=== PATIENT | female | born 1940 | race Caucasian/White ===

== ENCOUNTER 2021-11-06 14:35 | Outpatient (CLI) | payer MEDICARE, SELFPAY ==
--- NOTE | 2021-11-06 14:48 | ECG_ITS ---
Measurements Intervals [place] Rate: 86 P: 49 KS: 178 QRS: -11 QRSD: 98 T: 39 QT: 362 QTc: 435 Interpretive Statements SINUS RHYTHM POSSIBLE LEFT ATRIAL ENLARGEMENT INCOMPLETE RIGHT BUNDLE BRANCH BLOCK BORDERLINE T WAVE ABNORMALITY- ANTERIOR LEADS BASELINE ARTIFACT- I, II, III, AVL BORDERLINE ECG Electronically Signed On 11-06-2021 16:00:08 CLIENT CARE SPECIALIST by Jose Varghese D.O.
== END 2021-11-06 14:36 | disposition home or self-care (01) ==
LOC: ANHCARD 14:40
PROVIDERS: PCP Family Medicine; Visit Provider Family Medicine
DX: E78.2 Mixed hyperlipidemia (principal); R94.31 Abnormal electrocardiogram [ECG] [EKG]; I45.10 Unspecified right bundle-branch block
CPT/HCPCS: 93005

== ENCOUNTER 2021-11-22 07:41 | Outpatient (CLI) | payer MEDICARE, SELFPAY ==
[2021-11-22 09:28] LABS: Basophils Absolute Auto 0.1 K/mm3 (0.0-0.1); Eosinophils Absolute Auto 0.2 K/mm3 (0-0.3); Eosinophils Percent Auto 2.2 % (0-4.4); Hematocrit 42.7 % (37.0-47.0); Hemoglobin 13.7 g/dL (12.0-15.0); Immature Granulocyte Absolute 0.02 K/mm3 (0.00-0.031); Immature Granulocyte Percent A 0.3 % (0-0.5); Lymphocytes Absolute Auto 1.07 K/mm3 (0.9-3.2); Lymphocytes Percent Auto 15.6 % (18.3-44.2); Mean Corpuscular HGB Conc 32.1 g/dl (32-36); Mean Corpuscular Hemoglobin 29.9 pg (26-34); Mean Corpuscular Volume 93.2 fl (80-100); Mean Platelet Volume 10.3 fl (7.4-10.4); Monocytes Absolute Auto 0.5 K/mm3 (0.1-0.6); Monocytes Percent Auto 7.2 % (2.6-8.5); Neutrophils Absolute Auto 5.1 K/mm3 (1.3-6.7); Neutrophils Percent Auto 73.7 % (45.5-73.1); Platelet Count Result 292 k/mm3 (150-375); Red Blood Count 4.58 M/mm3 (4.2-5.4); Red Cell Distribution Width 12.5 % (11.5-14.5); White Blood Count 6.9 K/mm3 (4.5-10.0)
[2021-11-22 09:34] LABS: Albumin Level 4.1 g/dL (3.5-5.1); Estimated Glomerular Filt Rate > 60; Glucose 102 mg/dL (65-110)
[2021-11-22 09:35] LABS: Urine Cotinine NEGATIVE
[2021-11-22 09:44] LABS: Hemoglobin A1C 5.5 % (<5.7)
== END 2021-11-22 07:42 | disposition home or self-care (01) ==
LOC: ANHSURGERY 07:46
PROVIDERS: PCP Family Medicine; Visit Provider Orthopaedic Surgery
DX: Z01.812 Encounter for preprocedural laboratory examination (principal); M17.12 Unilateral primary osteoarthritis, left knee; Z51.81 Encounter for therapeutic drug level monitoring; Z79.899 Other long term (current) drug therapy
CPT/HCPCS: 80307; 82040; 82565; 82947; 83036; 85025; 87081

== ENCOUNTER 2021-12-11 00:41 | Day surgery (SDC) | payer MEDICARE, SELFPAY ==
--- NOTE | 2021-11-22 07:51 | PC.NURSE ---
Report to the Outpatient Waiting Room, entrance under the green pavilion located off [facility], at time _0830_ on date _12/11/21_. OR Time: __1030_. - You and your visitor will be asked a series of questions to screen for COVID 19 for your protection. - A mask is required within the hospital. - NO visitors are allowed at this time. Patient visitors will be guided where to wait when not with patient. Preoperative COVID Testing Requirements: No COVID Test needed if: (proof is required; if not received patient will have Rapid Test prior to entry) - Patient has received COVID Vaccine at least 14 days prior to procedure date or - Patient has positive COVID test result within last 90 days of surgery date. COVID Test needed if above criteria is not met If not COVID vaccinated a COVID test must be conducted within 72 hours of surgery and patient is asked to isolate self from time of testing until procedure. You will go to the [facility] for your COVID testing. The [facility] is located at the corner of [address] [facility]. You will only be called if COVID results are positive and your surgeon may reschedule your elective surgery date. Patients may have clear liquids (water, carbonated beverages, clear teas, apple juice) until 3 hours prior to surgery with a maximum of 20 ounces. (0730 AM) - No food from midnight until time of surgery - Infants may have breast milk until 4 hours before surgery, infant formula 6 hours prior to surgery. - Children will be allowed to drink immediately following surgery. If applicable, please bring a bottle or sippy cup to assist with drinking. Juice, water, soda, and popsicles are readily available. For infants on formula, please bring formula the day of surgery. Pacifiers are allowed. Take the following medications with a SIP of water the morning of surgery: _LEVOTHYROXINE, EYE DROPS__ Medications to discontinue per DR. COSME - _ASPIRIN, NAPROXEN, IBUPROFEN - ASK DR. COSME @ 11/27/21 APPT____ Medications to discontinue per ANESTHESIA - _CALCIUM, GLUCOSAMINE, FISH OIL, PRESERVISION - 3 DAYS PRIOR TO SURGERY: LAST DOSE TO BE ON 12/05/21_ Please no make-up, nail persian, hairspray, perfume, deodorant, or body powder the day of surgery. No jewelry (including any body piercings) or valuables the day of surgery, leave them at home. Please take a shower or bath the night before, or the morning of, surgery with an antibacterial soap. Wear comfortable, loose fitting clothing. Children are encouraged to wear pajamas. - Jewelry must be removed prior to entering the operating room. Rings and piercings that are not removed may be cut off. - The hospital will not accept responsibility for valuables. - Please leave all valuables, including medications, at home the day of surgery. If you are going home after surgery, a licensed canal driver must drive you home. - NO public transportation without another adult. - We recommend that an adult stay with you for 24 hours following discharge. - We also recommend that you do not drive, make important decision, drink alcoholic beverages, or take any drugs that were not prescribed by your health care provider for at least 24 hours after your discharge time. For Pediatric surgeries, we recommend two adults accompany the child home (only one inside the building at this time). Follow any additional instructions given to you from your surgeon. Telephone instructions given to ____PT and asked if any additional questions and then verbalized understanding. Patient advised to call surgeon office or pre surgery nurse liaison [phone] if any additional questions.
[2021-11-22 08:22] VITALS: BP 144/80; PULSE 86; RESP 18; TEMP 36.6; O2SAT 99; BMI 30.1
[2021-12-11] VITALS (10 sets, daily range): BP systolic 110–157; BP diastolic 46–77; PULSE 52–100; RESP 12–20; TEMP 36.4–38; O2SAT 95–100
--- NOTE | ~2021-12-11 | XR_ITS ---
EXAMINATION: XR knee LT 2V DATE: 12/11/2021 14:07 INDICATION: Total left knee arthroplasty. Postop. TECHNIQUE: 2 views of left knee were obtained. COMPARISON: Left knee radiographs 07/01/2019 FINDINGS: There is a total left knee arthroplasty without patellar resurfacing in near-anatomic align ment. No fracture. There is gas in the knee joint and soft tissues, consistent with recent surgery. IMPRESSION: 1. Total left knee arthroplasty in near-anatomic alignment. Reviewed, dictated and finalized at location A. NICAL SERVICES MANAGER
[2021-12-11] MEDS: ACETAMINOPHEN 500 MG TABLET 1000 MG PO (09:30)
[2021-12-11] MEDS: LACTATED RINGERS 1,000 ML 30 ML IV CONT ×2 (09:30→13:57)
[2021-12-11] MEDS: TRANEXAMIC ACID 1,000MG/ISO100 1,000 MG/100 ML BAG 200 MG IVPB (10:20)
--- NOTE | 2021-12-11 10:20 | WPDANESEPPF ---
Anes - Initial Pre Proc Eval Procedure: Operation Date: 12/11/21 11:00 Proposed Procedures p Left Total Knee Arthroplasty - Ramírez Wisdom MD Date/Time: 12/11/21 10:20 Surgeon: Ramírez Wisdom MD Pre Op Diagnosis: OA left knee Patient Data Age: 81 Gender: F Height: 1.63 m Weight: 76.6 kg Last Vital Signs Temp 36.5 C 12/11/21 09:36 Pulse 98 12/11/21 09:36 Resp 16 12/11/21 09:36 BP 132/75 12/11/21 09:36 Pulse Ox 99 12/11/21 09:36 Allergies Allergy/AdvReac Type Severity Reaction Status Date / Time povidone-iodine Allergy Unknown RASH Verified 12/11/21 09:10 Home Medications Medication Instructions Recorded Confirmed Type aspirin 81 mg tablet,delayed 81 mg PO HS 11/05/19 12/11/21 History release glucosamine sulfate 1,000 mg 1,000 mg PO QAM cap 11/05/19 12/11/21 History capsule ibuprofen 200 mg tablet 200 mg PO HS PRN tablet 11/05/19 12/11/21 History latanoprost 0.005 % eye drops 1 drop EACH EYE HS 11/05/19 12/11/21 History omega-3 fatty acids 1,000 mg 1,000 mg PO QAM 11/05/19 12/11/21 History capsule vit C 250 mg-vit E 90 mg-zinc 40 1 tablet PO BID 11/05/19 12/11/21 History mg-copper 1 [id number] capsule calcium carbonate 600 mg calcium 600 mg PO HS 09/05/20 12/11/21 History (1,500 mg) tablet naproxen sodium 220 mg tablet 220 mg PO QAM PRN tablet 08/28/21 12/11/21 History levothyroxine 50 mcg PO QAM 11/22/21 12/11/21 History simvastatin 10 mg PO HS 11/22/21 12/11/21 History rivaroxaban 10 mg tablet 10 mg PO DAILY #14 tablet 11/27/21 Rx Patient hx anesthesia problems: none Family hx anesthesia problems: none Results Review: All pre-operative results and documents have been reviewed as part of the pre-operative evaluation. 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 Encounter for general adult medical examination without abnormal findings Encounter for immunization (08/12/18) Glaucoma Hypercholesterolemia Hyperlipidemia LDL goal <100 Hypothyroidism Hypothyroidism determined by thyroid function test Osteopenia Screening for malignant neoplasm of colon Strain of muscle and tendon of back wall of thorax, initial encounter Surgical History Surgical History History of knee replacement right knee 09/09/2016 Simi History of tonsillectomy 1960 Hx of cataract extraction Family History Family History Mother Diabetes mellitus Heart disease Uterine cancer Father Heart disease Hypertension Grandparent Uterine cancer Sibling Ovarian cancer Sibling Diabetes mellitus Sibling Diabetes mellitus Sibling Diabetes mellitus Social History Social History Smoking status: Never smoker Second hand tobacco smoke exposure: No Additional smoking assessment comments: PT DENIES ALL FORMS OF TOBACCO USE Alcohol intake: current Alcohol use details: Occasional Substance use: never Substance use type: does not use Living arrangements: alone Gender identity (if verbalized by the patient): Female Spiritual care concerns: Yes (Scientology) Agree to blood products: Yes Anes - Eval Final PreProcedure Day of Procedure 12/11/21 10:20 Patient weight: overweight Heart: regular rate and rhythm Lungs: clear to auscultation Airway: Mallampati scale class 1 Neurological: alert and oriented Last oral intake: >/= 8 hours ASA classification: II Emergent: no Anesthetic plan: proceed Anesthesia type and monitoring: general LMA and standard monitoring Results Review: All pre-operative results and documents have been reviewed as part of the pre-operative evaluation. Informed Consent: The
--- NOTE | 2021-12-11 10:25 | WPDHPUPDATE1 ---
History and Physical Update Update Date/Time: 12/11/21 10:25 History and Physical has been reviewed, including an updated exam of the patient. There are NO changes in the patient's condition. Risks, benefits, and alternatives have been discussed and questions answered. Patient agrees to proceed with procedure.
--- NOTE | 2021-12-11 11:18 | WPDANESPNB ---
Anes - Peripheral Nerve Block Date/Time: 12/11/21 11:18 I have discussed with the patient/family/POA the placement of a peripheral nerve block for post-operative pain management, including associated risks, benefits, complications, and side effects. Alternative methods of post-operative analgesia were detailed. Questions were solicited and answers provided to the satisfaction of the patient/family/POA. Time-Out: A pre-procedural Time-Out was completed immediately before starting the procedure and confirmed: Patient Identification, Site, Procedure, Patient Position and the Availability of Requisite Equipment. Clinical Indications: Acute post-operative pain management requested by the operative surgeon. Nerve Block Insertion Note Anes-nerve block: adductor canal left Patient position: supine Skin prep: chlorhexidine Needle: 22 gauge, stimulating, insulated echogenic needle. Needle length: 80 mm Technique: ultrasound Injectate: bupivacaine 0.5% with epi 5 mcg/ml (30) and dexamethasone (mg) (8) Observations: tolerated well Complications: none Procedure start time:: 1105 Procedure end time:: 1110
[2021-12-11] MEDS: ceFAZolin 2 GM/D5W 50 ML 2 GM/50 ML BAG IVPB (11:35)
[2021-12-11] MEDS: ceFAZolin SODIUM 1 GM VIAL IV PUSH (13:21)
--- NOTE | 2021-12-11 13:51 | P.OP_ITS ---
Procedure Note - Detailed Date of Procedure 12/11/21 Pre-op Diagnosis OA left knee Post-op Diagnosis same Procedure Performed Left total knee replacement Surgeon Ramírez Wisdom MD Travel Service Consultant Cassadnra Juan Anesthesia general and regional Description of Procedure The patient was identified and proper site identified. In the preop holding area the anesthesia team performed a left sub sartorial block after which the patient was taken to the operating room and transferred to the OR table po sitioning supine taking care to pad the torso and extremities. After general anesthetic induction and intubation, a nonsterile tourniquet was placed high on the left thigh. The left lower extremity was prepped and draped in the usual sterile fashion. The extremity was exsanguinated and with the knee flexed tourniquet was inflated to 300 mmHg remaining up for approximately 56 minutes. An anterior midline incision was made and a modified medial parapatellar approach was used. Infra and suprapatellar fat pads were excised. Patellar thickness was assessed. It status, it was 10 millimeters and is thickest was 14 so instead of resurfacing, the marginal spurs were removed. Using the intramedullary guide the distal femur was cut in the proper orientation for the size 62.5 femoral component. Using the extramedullary guide the tibia was cut perpendicular to the long axis protecting collateral ligaments and popliteal structures. It was sized to a 71. Flexion and extension gaps were balanced. Trial reduction was undertaken and the weight-bearing line was noted to passed through the center of the joint. Proximal tibia was drilled and punched in the proper orientation for the real component. Trial components were removed. The bone surfaces were washed with pulsatile lavage and dried. The real components were cemented simultaneously. The knee was held in extension until the cement had cured. Excess cement was removed from the joint. After trialing it was determined that the 10 mm insert gave full range of motion from 0-120 degrees of flexion and the patella tracked in the femoral groove with no lift-off. After final lavage the joint the real 10 insert was placed and secured with a locking bar. Periarticular tissues were infiltrated with 60 cc of the arthropl asty solution. 1 g of tranexamic acid was left in the wound. The extensor mechanism was repaired with #2 Vicryl suture and 0 looped PDS suture. Subcu was reapproximated with 3-0 Monocryl and 2-0 Stratafix with tissue adhesive for the skin. A sterile dressing was applied. She tolerated the procedure well, was awakened and extubated, transferred to the bed and was taken to recovery area in stable condition. There were no known intraoperative complications. Perioperative antibiotics were administered. Estimated Blood Loss 150 Tourniquet Time 56 Drains No Packing No Pathology none sent Complications No immediate complications Condition stable Disposition PACU
[2021-12-11] MEDS: fentaNYL CITRATE INJ (*CRX) 100 MCG/2 ML VIAL 25 MCG IV PUSH ×8 (14:17→15:00)
--- NOTE | 2021-12-11 15:35 | ADMGEN ---
This patient, Trina Dao, was admitted to [facility] Surgery-11. Patient oriented to hospital policies and general routines including ID bracelet, bed and alarms, visiting hours, pain management, procedures, bathroom and other care routines, personal items, smoking policy, room service/diet, and visiting hours. Information on how to activate the Rapid Response Team has been discussed. Patient/Family are encouraged to report perceived risks to care and to ask questions if they do not understand what they are told or what they should do.
[2021-12-11] MEDS: SENNA/DOCUSATE SODIUM TABLET 2 TAB PO (16:51)
[2021-12-11] MEDS: HYDROcodone/acetaminophen (*CRX) 5-325 MG TABLET 1 TAB PO (17:15)
[2021-12-11] MEDS: CELECOXIB 200 MG CAPSULE PO (17:16)
[2021-12-11] MEDS: SIMVASTATIN 10 MG TABLET PO (20:45)
[2021-12-11] MEDS: FAMOTIDINE 20 MG TABLET PO (20:45)
[2021-12-11] MEDS: LATANOPROST 0.005% OP SOLN 2.5 ML BTL 1 DROP EACH EYE (20:46)
[2021-12-11] MEDS: HYDROcodone/acetaminophen (*CRX) 5-325 MG TABLET 2 TAB PO (21:00)
[2021-12-11] MEDS: HYDROmorphone HCL INJ (*CRX) 1 MG/ML SYR 0.5 MG IV PUSH (23:59)
[2021-12-12 00:58] VITALS: BP 119/57; PULSE 99; RESP 18; TEMP 37.1; O2SAT 98
[2021-12-12] MEDS: HYDROcodone/acetaminophen (*CRX) 5-325 MG TABLET 1 TAB PO ×3 (02:50→11:13)
[2021-12-12 04:58] VITALS: BP 116/78; PULSE 54; RESP 16; TEMP 36.9; O2SAT 100
[2021-12-12] MEDS: LEVOTHYROXINE SODIUM 50 MCG TABLET PO (06:20)
[2021-12-12] MEDS: polyethylene glycoL 3350 17 GM POWD.PACK PO (08:34)
[2021-12-12] MEDS: FAMOTIDINE 20 MG TABLET PO (08:34)
[2021-12-12] MEDS: SENNA/DOCUSATE SODIUM TABLET 2 TAB PO (08:34)
--- NOTE | 2021-12-12 08:50 | PM.DS ---
DS: Admitting Diagnosis Discharge Date December 12, 2021 Admitting Diagnosis Left knee osteoarthritis DS: Discharge Diagnosis Discharge Diagnosis (1) History of total knee arthroplasty: Qualifiers: Laterality: left Qualified Code(s): Z96.652 - Presence of left artificial knee joint Code(s): Z96.659 - Presence of unspecified artificial knee joint Status: Acute Assessment and Plan: 81-year-old female postop day 1 after left total knee replacement by Dr. Wisdom. Exam today showed a clean and dry dressing. She does have swelling at the surgical site but this is to be expected. During exam this morning she was receiving therapy and did feel some lightheadedness. I suspect this will get better with time and once she starts to push fluids. She will be seen by therapy again prior to discharge. Follow up in our office in 2 weeks for wound check. Questions were addressed with patient and she was told to call our office with any further concerns. DS: Summary Hospital Course Reason for hospitalization: Observation after outpatient procedure Hospital Course: 81-year-old female postop day 1 after left total knee replacement. She does have swelling at the surgical site but this is to be expected after recent procedure. Plan on receiving therapy this morning and discharge afterwards. Status at Discharge Functional status at discharge: uses cane/walker Time Spent with Patient Time attestation: Total time spent providing and/or coordinating discharge services: Time spent: Less than 30 minutes Exam Const: General: comfortable and no acute distress Eyes: General: appearance normal, both eyes and all related structures GI: Inspection: non-distended GI Palp: No Tenderness to palpation present (GI) Neuro: General: patient oriented x3, moves all extremities and Normal light touch and pain sensation Speech: normal speech Sensory Exam: normal sensation Extrem: Other: Exam left knee shows a clean and dry surgical dressing. Swelling noted around the knee and lower leg. She denies numbness or tingling in the foot. Calves negative. Neurovascular status unremarkable. Psych: Mental Status: mental status grossly normal DS: Data Data Completed and Pending Labs on day of discharge: Labs from last 24 hours 12/11/21 09:14 Blood Type A Negative Antibody Screen Negative Discharge Plan Discharge Patient Disposition: Home, Self-Care Discharge Instructions: 3 times daily for 20 minutes each time, reclining in bed with ice packs over the incision and a pillow underneath the calf of the affected leg, not under the knee. Your wound is glued so it is okay to get into the shower and get the wound wet in two days. Be sure to read through all the information that came from a my office and the hospital. Most of the answers you will need can be found that material. Call the office with any questions that you cannot find answers to, or concerns you may have. After the Xarelto is completed, start taking one coated 325 mg aspirin daily and do this for four more weeks. Please call [facility] at as soon as possible to verify your follow-up appointment to be seen in 2 weeks. Also, call the office with any orthopedic/surgical related questions prior to follow-up. Be sure to get up and move around several times daily but do not overdo it. He has been given a prescription for hydrocodone 5/325. This has Tylenol in it so do not take the extra Tylenol while taking this medication. Once this medication is finished, you may start on a Tylenol schedule of 3 times per day. Take the arthritis formula Tylenol 650 mg tablet on an 8 hour schedule. A good 8 hour schedule is: 6:00 a.m., 2:00 p.m., 10:00 p.m. you may take the prescribed pain medication along with the Tylenol; it is not to be taken instead of the Tylenol. You have also been given a prescription for Celebrex. This is an anti-inflammatory that you c
[2021-12-12 08:58] VITALS: BP 118/52; PULSE 88; RESP 20; TEMP 36.2; O2SAT 99
[2021-12-12] MEDS: CELECOXIB 200 MG CAPSULE PO (10:14)
[2021-12-12] MEDS: OPTI-GEN TAB 1 TABLET PO (10:14)
[2021-12-12] MEDS: RIVAROXABAN 10 MG TABLET PO (11:12)
--- NOTE | 2021-12-12 11:39 | PM.IMCN ---
Assessment and Plan Assessment and plan (1) History of total knee arthroplasty: Qualifiers: Laterality: left Qualified Code(s): Z96.652 - Presence of left artificial knee joint Code(s): Z96.659 - Presence of unspecified artificial knee joint Status: Acute Assessment and Plan: Sp left knee arthoplasty doing well pod day 1 Pt can be discharged today by orthopedics medically stable from my point of view. Pt to be discharged with oral xarelto and norco for pain control (2) Hypothyroidism (acquired): Code(s): E03.9 - Hypothyroidism, unspecified Status: Acute Assessment and Plan: Pt to continue on oral levothyroxine as before (3) Osteoarthritis of multiple joints: Qualifiers: Osteoarthritis type: primary Qualified Code(s): M89.49 - Other hypertrophic osteoarthropathy, multiple sites Code(s): M15.9 - Polyosteoarthritis, unspecified Status: Acute Assessment and Plan: Sp left knee previously had R knee Continue follow up with orthopedics (4) Mixed hyperlipidemia: Code(s): E78.2 - Mixed hyperlipidemia Status: Acute Assessment and Plan: Continue statin as before (5) Hypercholesterolemia: Code(s): E78.00 - Pure hypercholesterolemia, unspecified Status: Acute Assessment and Plan: Continue statin as before HPI Data of Consult Consult date: 12/12/21 Requesting Physician: Ramírez Wisdom MD Primary Care Provider: Jannie Powell MD Consult Narrative Narrative: Trina Dao is a 81 year old female admitted for left knee replacement. Pt has history of Hypercholesterolemia and hypothyroidism, macular degeneration and OA of her knees. Pt has had her R knee replaced already. Pt had L knee replaced yesterday feels well apart from left knee swelling. Pt was told by orthopedics she has soft tissue swelling and should keep ice on it. Otherwise pt has no issues, her PCP is DR Powell. 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 Encounter for general adult medical examination without abnormal findings Encounter for immunization (08/12/18) Glaucoma Hypercholesterolemia Hyperlipidemia LDL goal <100 Hypothyroidism Hypothyroidism determined by thyroid function test Osteopenia Screening for malignant neoplasm of colon Strain of muscle and tendon of back wall of thorax, initial encounter Surgical History Surgical History History of knee replacement right knee 09/09/2016 Simi History of tonsillectomy 1960 Hx of cataract extraction Family History Family History Mother Diabetes mellitus Heart disease Uterine cancer Father Heart disease Hypertension Grandparent Uterine cancer Sibling Ovarian cancer Sibling Diabetes mellitus Sibling Diabetes mellitus Sibling Diabetes mellitus Social History Social History Smoking status: Never smoker Second hand tobacco smoke exposure: No Additional smoking assessment comments: PT DENIES ALL FORMS OF TOBACCO USE Alcohol intake: current Alcohol use details: Occasional Substance use: never Substance use type: does not use Living arrangements: alone Gender identity (if verbalized by the patient): Female Spiritual care concerns: No Agree to blood products: Yes Meds Home Medications and Allergies Home Medications Medication Instructions Recorded Confirmed Type aspirin 81 mg tablet,delayed 81 mg PO HS 11/05/19 12/11/21 History release glucosamine mott
[2021-12-12 12:37] VITALS: BP 121/47; PULSE 100; RESP 18; TEMP 36.8; O2SAT 99
== END 2021-12-12 12:58 | disposition home or self-care (01) ==
LOC: ANHSURGERY 13:40 → ANHSUROVER 15:17
PROVIDERS: PCP Family Medicine; Visit Provider Orthopaedic Surgery
PROC: (CPT 27447; principal; 2021-12-11 11:00)
DX: M17.12 Unilateral primary osteoarthritis, left knee (principal); G89.18 Other acute postprocedural pain; E78.5 Hyperlipidemia, unspecified; E03.9 Hypothyroidism, unspecified; M89.49 Other hypertrophic osteoarthropathy, multiple sites; E78.2 Mixed hyperlipidemia; E78.00 Pure hypercholesterolemia, unspecified; H35.3110 Nonexudative age-related macular degeneration, right eye, stage unspecified; H35.3210 Exudative age-related macular degeneration, right eye, stage unspecified; M85.80 Other specified disorders of bone density and structure, unspecified site; H40.9 Unspecified glaucoma; Z79.82 Long term (current) use of aspirin; Z79.01 Long term (current) use of anticoagulants
CPT/HCPCS: 27447; 64447; 36415; 73560; 86850; 86900; 86901; 97110; 97116; 97161; 97165; A9270; C1713; C1776; J0171; J0690; J1100; J1170; J2250; J2270; J2405; J2704; J2795; J3010; J7030; J7120

== ENCOUNTER 2022-01-30 11:00 | Outpatient (RCR) | payer MEDICARE, SELFPAY ==
--- NOTE | 2022-01-01 09:24 | PTOPEVAL ---
PHYSICAL THERAPY EVALUATION AND PLAN OF CAR E Thank you for referring Trina Dao to [facility].? The patient is scheduled to be seen for therapy? 2x/week for 4 weeks. Please review, sign, date and return this plan of care JOYCE. I agree with and certify that the following plan of care is medically necessary. Referring Physician Date Attending Provider: Ramírez Wisdom MD Evaluation Diagnosis left TKA Onset 12/11/21 Subjective Information Trina is here today 3 Query Text:As Reported By Patient/ weeks s/p left TKA. She Family participated in HH PT for the first 2 weeks of therapy. She continues to walk with a WW. She has been spongebathing because she has been nervous to step over the tub. Prior Level of Function Home Setting Home Type House,Multiple Levels Environmental Barriers Railing, Bilateral,Stairs, Greater than 4 Living Situation Alone Support Available Local Family Support Comments Additional Prior Level of Function laundry is in the basement. Comments Self Report Pain Assessment Left Knee(s) Reported Pain Level 1 Pain Description Aching Pain Frequency Acute,Intermittent Lowest Pain Intensity 1 Greatest Pain Intensity 6 Pain Aggravating Factors Exercise/Activity Other Pain Aggravating Factors edema Pain Score Pain Score 1: Self Report Interventions Used Interventions Used By Clinicians Exercise,Ice,Manual Therapy Techniques Pain Relief Interventions Used By Elevation,Ice Patient Lower Extremity Range of Motion Knee Range of Motion Left Knee Flexion Range of Motion - Active 104 Knee Extension Range of Motion - Active -2 Query Text: Lower Extremity Muscle Strength Testing Hip Strength Left Hip Flexion Strength 4 Good Hip Extension Strength 3+ Fair + Hip Abduction Strength 3 Fair Knee Strength Left Knee Flexion Strength 4- Good - Knee Extension Strength 4- Good - Extremity Circumference Assessment Circumference Assessment Location Left Body Part Knee Site Descriptor (Fitzpatrick) suprapatellar Circumference (cm) 46 Gait Assessment Gait Assessment Ambulation Assistive Devices Walker, Wheeled Weight Bearing Status - Left As Tolerated Weight Bearing Status - Right Full Maintains Weight Bearing Status Yes Ambulation Ability Independent Additional Ambulation Comments th
--- NOTE | 2022-01-30 11:15 | PTOPEVAL ---
PHYSICAL THERAPY DISCHARGE NOTE Thank you for referring Trina Dao to [facility] [place] Please review, sign, date and return this plan of care JOYCE. I agree with and certify that the following plan of care is medically necessary. Referring Physician Date Attending Provider: Ramírez Wisdom MD Discharge Diagnosis left TKA Onset 12/11/21 Subjective Information States that she has been doing Query Text:As Reported By Patient/ well. She has been going to Family the basement to do laundry and going for walks on nice days. She has been able to get into and out of the bathtub shower with a shower chair. Reports no significant pain in left knee. Pain Assessment Timing of Pain Assessment Timing of Pain Assessment Assessment Self Report Self Report Pain Level 0 Pain Score Pain Score 0: Self Report Lower Extremity Range of Motion Knee Range of Motion Left Knee Flexion Range of Motion - Active 120 Knee Extension Range of Motion - Active 0 Query Text: Lower Extremity Muscle Strength Testing Hip Strength Left Hip Flexion Strength 5 Normal Hip Extension Strength 4- Good - Hip Abduction Strength 4- Good - Knee Strength Left Knee Flexion Strength 4+ Good + Knee Extension Strength 4+ Good + Gait Assessment Gait Assessment Ambulation Assistive Devices None Weight Bearing Status - Left Full Weight Bearing Status - Right Full Maintains Weight Bearing Status Yes Ambulation Ability Independent Stair Climbing Assessment Stair Climbing Assessment Stair Climbing Assistive Devices Railings Weight Bearing Status - Left Full Weight Bearing Status - Right Full Maintains Weight Bearing Status Yes Technique Alternating Steps Stair Climbing Direction Both Up and Down Stair Climbing Ability Independent Ability to Step Over a Curb Independent Stair Climbing Comments Cues to engage and activate glutes when pressing up on stairs General Exercise General Exercises Side Left Exercise Location knee Exercise Type Active Exercise Description reviewed HEP per chart copy - Query Text:Record Sets, Reps, took out heel walking and toe Resistance, and Position walking as it increases pain in the left ankle PT Clinical Summary Celina is a a 81 yo female presenting to outpatient
== END 2022-01-31 09:14 | disposition home or self-care (01) ==
LOC: ANHPT 11:00
PROVIDERS: PCP Family Medicine; Visit Provider Orthopaedic Surgery
DX: Z47.1 Aftercare following joint replacement surgery (principal); Z96.652 Presence of left artificial knee joint
CPT/HCPCS: 97016; 97110; 97112; 97140; 97162; 97530

== ENCOUNTER 2023-07-09 14:43 | Emergency (ER) | payer MEDICARE, SELFPAY ==
--- NOTE | ~2023-07-09 | CT_ITS ---
EXAMINATION: CT brain wo con DATE: 07/09/2023 15:21 INDICATION: New headache TECHNIQUE: Computed tomography (CT) of the head was performed without intravenous contrast. The mA wa s adjusted according to patient size. Iterative reconstruction technique was employed. Exam dose: 60 5.33 mGy-cm total exam DLP. COMPARISON: None FINDINGS: Bilateral carotid siphon internal carotid artery calcifications. There is nonspecific dimin ished attenuation of the cerebral white matter, likely due to chronic small vessel ischemic changes. Small bilateral chronic basal ganglia lacunar infarcts. No intracranial mass lesion or hemorrhage or recent cerebrovascular accident, midline shift or mass e ffect is detected. No subdural or epidural hematoma. There are several opacified ethmoid air cells but the paranasal sinuses are otherwise well-developed and aerated. The mastoid air cells are normally developed and aerated. No fracture or bone destruction of the cranial vault. IMPRESSION: Cerebral atherosclerosis and chronic small vessel ischemic changes of the cerebral white matter, small bilateral chronic lacunar infarcts of the basal ganglia No acute intracranial finding Reviewed, dictated and finalized at [facility]. Reviewed, dictated and finalized at [facility].
[2023-07-09 14:47] VITALS: BP 150/78; PULSE 93; RESP 16; TEMP 36.2; O2SAT 99
[2023-07-09 15:08] VITALS: BP 148/73; PULSE 85; RESP 17; O2SAT 98
--- NOTE | 2023-07-09 16:26 | ED.HA ---
HPI - Headache General Chief Complaint: Headache Stated Complaint: right posterior headache/neck pain Time Seen by Provider: 07/09/23 14:56 History of Present Illness HPI Narrative: Patient is an 83-year-old female who presents ER with headache. Right-sided and posterior over the right paraspinal musculature moving into the base of the skull. No change in vision or hearing. Improves when she takes naproxen. Initially thought she had slept on her side wrong. Also moves to her shoulder. No chest pain or chest pressure. No exertional component. No recent trauma. Denies sinus congestion or sore throat or productive cough. No fevers or chills or sweats. No confusion. Related Data Home Medications Medication Instructions Recorded Confirmed glucosamine sulfate 1,000 mg 1,000 mg PO QAM 11/05/19 03/04/23 capsule latanoprost 0.005 % eye drops 1 drop ophthalmic (eye) HS 11/05/19 03/04/23 omega-3 fatty acids 1,000 mg 1,000 mg PO QAM 11/05/19 03/04/23 capsule (Fish Oil Concentrate) vit C 250 mg-vit E 90 mg-zinc 40 1 tablet PO BID 11/05/19 03/04/23 mg-copper 1 [id number] capsule (PreserVision AREDS-2) calcium carbonate 600 mg calcium 600 mg PO HS 09/05/20 03/04/23 (1,500 mg) tablet naproxen sodium 220 mg tablet 220 mg PO QAM PRN Pain 08/28/21 03/04/23 (Aleve) aspirin 325 mg tablet,delayed 325 mg PO DAILY 09/02/22 03/04/23 release sennosides 8.6 mg tablet (senna) 8.6 mg PO QHS 09/02/22 03/04/23 Allergies Allergy/AdvReac Type Severity Reaction Status Date / Time povidone-iodine Allergy Unknown RASH Verified 07/09/23 15:13 Review of Systems Review of Systems: All systems reviewed & are unremarkable except as noted in HPI and below Constitutional: Constitutional: Denies chills, Denies fatigue and Denies fever(s) Eyes: Eyes: Denies change in vision and Denies photophobia ENT: Denies dizziness, Denies nasal congestion and Denies sore throat Gastrointestinal: Gastrointestinal: Denies abdominal pain, Denies nausea and Denies vomiting Neurologic: Denies syncope, Reports headache(s), Denies focal weakness and Denies numbness PMFSH Past Medical History Medical History Age-related macular degeneration, wet, left eye Arthritis Arthritis of knee, 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 Encounter for general adult medical examination without abnormal findings Encounter for immunization (08/12/18) Glaucoma Hypercholesterolemia Hyperlipidemia LDL goal <100 Hypothyroidism Hypothyroidism determined by thyroid function test Osteopenia Screening for malignant neoplasm of colon Strain of muscle and tendon of back wall of thorax, initial encounter Surgical History Surgical History History of knee replacement right knee 09/09/2016 Simi History of left knee replacement 12/11/2021 History of tonsillectomy 1960 Hx of cataract extraction Family History Family History Mother Diabetes mellitus Heart disease Uterine cancer Father Heart disease Hypertension Grandparent Uterine cancer Sibling Ovarian cancer Sibling Diabetes mellitus Sibling Diabetes mellitus Sibling Diabetes mellitus Social History Social History (Updated 03/04/23 @ 09:50 by Cassandra Murillo CMA) Smoking status: Never smoker Second hand tobacco smoke exposure: No Additional smoking assessment comments: PT DENIES ALL FORMS OF TOBACCO USE Alcohol intake: current Alcohol use details: Occasional Substance use: never Substance use type: does not use Lack of Transportation: No Lack of Food: Never True Current Housing: I Have Housing Concerned About Future Housing: No Difficulty Paying Gas/Electric Bills: No Difficulty Paying for Meds: No Currently Unemployed: No Education: Trade/Vocational Certificat
== END 2023-07-09 16:39 | disposition home or self-care (01) ==
PROVIDERS: Emergency Provider Emergency Medicine; PCP Family Medicine
DX: G44.209 Tension-type headache, unspecified, not intractable (principal); E78.5 Hyperlipidemia, unspecified; E03.9 Hypothyroidism, unspecified
CPT/HCPCS: 70450; 99284

== ENCOUNTER 2025-10-22 01:13 | Emergency (ER) | payer MEDICARE, SELFPAY ==
[2025-10-22 01:21] VITALS: BP 150/63; PULSE 92; RESP 16; TEMP 37.1; O2SAT 100
[2025-10-22 03:46] VITALS: BP 134/72; PULSE 78; RESP 15; TEMP 36.4; O2SAT 100
--- NOTE | 2025-10-22 14:14 | ED.GENADULT ---
HPI - General Adult General Chief complaint: Recheck/Abnormal Lab/Rx Stated complaint: right foot 2nd toenail pulled out Time Seen by Provider: 10/22/25 02:06 History of Present Illness HPI narrative: 85-year-old female presenting with right 2nd toenail avulsion. Patient states she was walking when her toenail snagged and came off. She reports a significant amount of bleeding. Bleeding controlled. Maintains good sensation, movement/range of motion, and capillary refill. Patient is not on blood thinners. Related Data Home Medications ?Medication ?Instructions ?Recorded ?Confirmed ?Last Taken ?Type glucosamine sulfate 1,000 mg 1,000 mg PO QAM 11/05/19 09/19/25 12/04/21 History capsule latanoprost 0.005 % eye drops 1 drop ophthalmic (eye) HS 11/05/19 09/19/25 12/11/21 History omega-3 fatty acids 1,000 mg 1,000 mg PO QAM 11/05/19 09/19/25 12/04/21 History capsule (Fish Oil Concentrate) vit C 250 mg-vit E 90 mg-zinc 40 1 tablet PO BID 11/05/19 09/19/25 12/04/21 History mg-copper 1 [id number] capsule (PreserVision AREDS-2) calcium carbonate 600 mg PO HS 09/05/20 09/19/25 12/04/21 History aspirin 325 mg tablet,delayed 325 mg PO DAILY 09/02/22 09/19/25 Unknown History release Allergies Allergy/AdvReac Type Severity Reaction Status Date / Time povidone-iodine Allergy Unknown RASH Verified 10/22/25 01:15 Review of Systems Review of Systems: All systems reviewed & are unremarkable except as noted in HPI and below [facility] Past Medical History Medical History Age-related macular degeneration, wet, left eye Bilateral 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 Encounter for general adult medical examination without abnormal findings Encounter for immunization (08/12/18) Glaucoma Hypercholesterolemia Hyperlipidemia LDL goal <100 Hypothyroidism Hypothyroidism determined by thyroid function test Osteopenia Screening for malignant neoplasm of colon Strain of muscle and tendon of back wall of thorax, initial encounter Surgical History Surgical History History of knee replacement right knee 09/09/2016 Simi History of left knee replacement 12/11/2021 History of tonsillectomy 1960 Hx of cataract extraction Family History Family History Mother Diabetes mellitus Heart disease Uterine cancer Father Heart disease Hypertension Grandparent Uterine cancer Sibling Ovarian cancer Sibling Diabetes mellitus Sibling Diabetes mellitus Sibling Diabetes mellitus Social History Social History Smoking status: Never smoker Second hand tobacco smoke exposure: No Additional smoking assessment comments: PT DENIES ALL FORMS OF TOBACCO USE Alcohol intake: current Alcohol use details: Occasional Substance use: never Substance use type: does not use Lack of Transportation: No Lack of Food: Never True Current Housing: I Have Housing Concerned About Future Housing: No Difficulty Paying Gas/Electric Bills: No Difficulty Paying for Meds: No Currently Unemployed: No Education: Trade/Vocational Certificate Difficulty w/ Childcare or Family Care: No Living arrangements: alone Occupation/Education: retired Gender identity (if verbalized by the patient): Female Spiritual care concerns: No Agree to blood products: Yes Exam Narrative: GENERAL: Well-appearing, well-nourished, and in no acute distress. HEAD: Normocephalic, atraumatic. EYES: PERRLA and EOMI. ENT: Nares clear, no rhinorrhea or epistaxis. Mucous membranes moist. Oropharynx without tonsillar hypertrophy exudate or other lesions. Bilateral TMs pearly meehan non-bulging NECK: Supple. No adenopathy or masses. No carotid bruits or JVD CHEST: Clear to auscultation. No respiratory distress. No wheezes rales or rhonchi HEART: Regular rate and rhythm. No murmur heard. Normal peripheral pulses. ABDOMEN: Soft, nontender, nondistended, normal active bowel sounds. EXTREMITIES: Normal range of motion. No edema. Right second toe missing toenail, exposed nail bed. Good ROM, intact sensation, appropriate capillary refill. SKIN: Warm, dry, no rash. NEURO: No focal deficits. Alert and oriented x3. PSYCH: Normal mood and affect Course Vital Signs Vital signs: Vital Signs Temperature 98.8 F 10/22/25 01:21 Pulse Rate 92 12/13/25 01:21 Respiratory Rate 16 10/22/25 01:21 Blood Pressure 150/63 H 10/22/25 01:21 Pulse Oximetry 100 10/22/25 01:21 Oxygen Delivery Room Air 10/22/25 01:21 Temperature 97.6 F 10/22/25 03:46 Pulse Rate 78 10/22/25 03:46 Respiratory Rate 15 10/22/25 03:46 Blood Pressure 134/72 10/22/25 03:46 Pulse Oximetry 100 10/22/25 03:46 Oxygen Delivery Room Air 10/22/25 01:21 MDM MDM Narrative Medical decision making narrative: 85-year-old female presenting with right 2nd toenail avulsion. Patient states she was walking when her toenail snagged and came off. She reports a significant amount of bleeding. Bleeding controlled. Maintains good sensation, movement/range of motion, and capillary refill. Patient is not on blood thinners. Upon my initial assessment patient appears nontoxic with bleeding controlled in the injured toe. I irrigated the nail bed thoroughly with normal saline and dressed the injury. Provided directions on dressing changes evident wound cleaning. All questions were answered to the patient's satisfaction. The patient is appropriate for outpatient treatment and follow-up. Given reasons to return. Differential Diagnosis Differential Diagnosis: Differential diagnostic considerations for lower extremity injury include ankle sprain/strain, acute internal derangement of knee, fracture of femur, fracture of hip, puncture wound of foot, fracture of toe, fracture of ankle, tendon rupture (achilles/patellar/quadriceps). Medical Records I have reviewed the following patient records and this information was taken into consideration when formulating the assessment and plan.: previous labs and previous ER visits Discharge Plan Discharge Clinical Impression: Avulsed toenail Patient Disposition: Home Condition: Stable Instructions: Nail Avulsion (ED) Additional Instructions: Return if symptoms worsen or concerns: any increase in redness, swelling, pain or fever over 101 Clean wound with mild soapy water. Apply antibiotic ointment and clean dressing daily. Tylenol as needed for pain. Follow up with primary care. Patient Language: Urugu[place] Prescriptions: No Action aspirin 325 mg tablet,delayed release (DR/EC) 325 mg PO DAILY cholecalciferol (vitamin D3) 125 mcg (5,000 unit) tablet 125 mcg PO DAILY Qty: 1 0RF glucosamine sulfate 1,000 mg capsule 1,000 mg PO QAM latanoprost 0.005 % drops 1 drop EACH EYE HS omega-3 fatty acids [Fish Oil Concentrate] 1,000 mg capsule 1,000 mg PO QAM PreserVision AREDS-2 [id number] [id number] capsule 1 tablet PO BID calcium carbonate 600 mg calcium (1,500 mg) tablet 600 mg PO HS naproxen 250 mg tablet 250 mg PO DAILY Qty: 1 0RF levothyroxine 50 mcg tablet 50 mcg PO QAM Qty: 90 1RF simvastatin 10 mg tablet 10 mg PO HS Qty: 90 1RF Follow-up/Referrals: UNKNOWN,DOCTOR [Non-Staff]
== END 2025-10-22 03:49 | disposition home or self-care (01) ==
LOC: ANHED 02:37
DX: S91.204A Unspecified open wound of right lesser toe(s) with damage to nail, initial encounter (principal); E78.00 Pure hypercholesterolemia, unspecified; E03.9 Hypothyroidism, unspecified; H35.3110 Nonexudative age-related macular degeneration, right eye, stage unspecified; H40.9 Unspecified glaucoma; M85.80 Other specified disorders of bone density and structure, unspecified site; Z96.653 Presence of artificial knee joint, bilateral; Z98.49 Cataract extraction status, unspecified eye; Z79.82 Long term (current) use of aspirin; Z79.899 Other long term (current) drug therapy; W22.8XXA Striking against or struck by other objects, initial encounter
CPT/HCPCS: 99282